=== PATIENT | male | born 1935 | race Caucasian/White ===

== ENCOUNTER → 2023-12-16 08:03 | Outpatient (REF) | payer MEDICARE, BC, SELFPAY | LOC: RAD 08:03 | PROVIDERS: ATTENDING PHYSICIAN Internal Medicine Rheumatology; FAMILY PHYSICIAN Internal Medicine | DX: M81.0 Age-related osteoporosis without current pathological fracture (principal) | CPT/HCPCS: 77080 ==

== ENCOUNTER → 2023-12-30 07:25 | Outpatient (REF) | payer MEDICARE, BC, SELFPAY ==
[2023-12-30 08:24] LABS: % Basophils 0.6 % (0-2); % Eosinophils 1.9 % (0-6); % Immature Granulocytes 0.5 % (0-0.5); % Lymphocytes 31.8 % (20.5-51.1); % Monocytes 10.5 % (1.7-9.3); % Neutrophils 54.7 % (42.2-75.2); Absolute Basophils 0.1 10^3/uL (0-0.2); Absolute Eosinophils 0.2 10^3/uL (0-0.7); Absolute Immature Granulocytes 0.1 10^3/uL (0-0.05); Absolute Lymphocytes 3.9 10^3/uL (1.2-3.4); Absolute Monocytes 1.3 10^3/uL (0.1-0.6); Absolute Neutrophils 6.7 10^3/uL (1.4-6.5); Hematocrit 51.2 % (39.0-52.0); Mean Corp Hgb Conc. 33.2 g/dL (33.0-37.0); Mean Corpuscular Hgb 30.9 pg (27.0-31.0); Mean Corpuscular Volume 92.9 fL (80.0-94.0); Mean Platelet Volume 10.9 fL (7.4-10.4); Nucleated Red Blood Cells % 0 % (-); Platelet Count 170 10^3/uL (130-400); Red Blood Cell Count 5.51 10^6/uL (4.70-6.10); Red Cell Dist. Width 14.2 % (11.5-14.5); White Blood Cell Count 12.3 10^3/uL (4.8-10.8)
[2023-12-30 09:28] LABS: Erythrocyte Sed Rate 3 mm/hour (0-20)
[2023-12-30 09:34] LABS: Glycohemoglobin (HgbA1c) 6.9 % (4.0-5.6)
[2023-12-30 10:25] LABS: ALT (SGPT) 30 U/L (0-50); AST (SGOT) 39 U/L (17-59); Alkaline Phosphatase 79 U/L (38-126); Blood Urea Nitrogen 23 mg/dl (9-20); Calcium 9.4 mg/dl (8.4-10.2); Carbon Dioxide 31 mmol/L (22-30); Chloride 100 mmol/L (98-107); Glucose 93 mg/dl (70-99); HDL Cholesterol 68 mg/dl; LDL Cholesterol, Calculated 83 mg/dl; Potassium 4.6 mmol/L (3.5-5.1); Sodium 138 mmol/L (135-145); Total Bilirubin 1.3 mg/dl (0.2-1.3); Total Cholesterol 172 mg/dl (50-199); Total Protein 6.8 g/dl (6.3-8.2); Triglyceride 105 mg/dl (10-149); Very Low Density Lipoprotein 21 mg/dl (0-30); eGFR 52.84
== END ==
LOC: REG 07:25
PROVIDERS: ATTENDING PHYSICIAN Internal Medicine Rheumatology; FAMILY PHYSICIAN Internal Medicine
DX: E78.5 Hyperlipidemia, unspecified (principal); M06.00 Rheumatoid arthritis without rheumatoid factor, unspecified site; R73.01 Impaired fasting glucose; Z79.52 Long term (current) use of systemic steroids
CPT/HCPCS: 36415; 80053; 80061; 83036; 85025; 85652; 86140

== ENCOUNTER 2024-07-26 08:16 | Inpatient (IN) | payer MEDICARE, BC, SELFPAY ==
[2024-07-23 18:33] VITALS: BP 174/110
--- NOTE | 2024-07-23 19:21 | ED.GENMED ---
History of Present Illness
General
Chief Complaint: Heart Rate Problem
Source: patient
Exam Limitations: none
Time Seen by Provider: 07/23/24 18:54
Nursing documentation reviewed up to this point in time: agreed with
History of Present Illness
History of Present Illness:
89 male presents with fatigue, history of A-fib followed at [facility] on Eliquis and sotalol has had an ablation does not typically go into A-fib his watch showed that his heart rate was a little faster than usual so also noticed some lower extremity
edema he is a , he lives alone does not drink or smoke denies any chest pain
Past History
Past History
ED Past Medical History: Arrthythmia and Other
ED Past Surgical History: Cardiac and Other (Past surgical history)
Social History
Tobacco: Non-smoker
Alcohol: None
Drug: None
Personal:
Living: with family
Employment: Retired
Review of Systems
Review of Systems
All Other Systems: Not applicable
Constitutional: Reports fatigue; Denies fever
EENT: Reports no symptoms
Respiratory: Denies cough or trouble breathing
Cardiac: Denies chest pain or palpitations
ABD/GI: Reports no symptoms
: Reports no symptoms
Musculoskeletal: Reports edema
Skin: Reports no symptoms
Neurological: Reports no symptoms
Endocrine: Reports no symptoms
Phy Exam
Physical Exam
Physical Exam:
Physical Exam
General: no apparent distress, not acutely ill
Neck: No jaundice
Heart: Irregular
Lungs: Crackles at the bases
Abdomen: Nontender
Neuro: alert and oriented. no focal neurological deficits
Skin: no rash
Psychiatric: well kept. interactive and cooperative
Extremities: Edema is present
Scores
Heart Failure Risk
Heart Failure Risk Score: Yes
History of Stroke or TIA: No
History of intubation for respiratory distress: No
Heart rate on ED arrival >/= 110: No
SaO2 <90% on arrival on room air: No
HR >/=110 during 3min walk test (or too ill to perform test): Yes
ECG has acute ischemic changes: No
Urea >/=12mmol/L (BUN 33.6mg/dL): No
Serum CO2>/=35mmol/L: No
Troponin I or T elevated to CA Level (0.4mg/dL): No
NT-proBNP >/=5,000ng/L (5,000pg/ml): Yes
HF Risk Score: 3
Admission Status: HIGH RISK 15.9% Consider SNF treatment or admission to hospital
Course
Orders/Labs/Results
Orders:
Orders
07/23/24 Dinner
Cholesterol Lowering
At Your Request: Full Participation
Does patient need a safe tray?: No
Cholesterol Lowering: Sodium, 2 Gram
07/23/24 18:27
EKG [Electrocardiogram (*1)] Urgent
Reason for Study: Atrial Fibrillation
EKG- Treatment ONCE
07/23/24 19:07
Electrocardiogram (*1) Stat
Reason for Study: Other
Other Reason for Exam: chest pain
Cardiac Monitoring- Treatment ONCE
EKG- Treatment ONCE
CR Chest - 2 Views Urgent
Comment:
Reason For Exam: sob
07/23/24 19:27
Complete Blood Count/With Diff Urgent
Comprehensive Metabolic Panel Urgent
Magnesium Urgent
NT-proBNP Urgent
TSH Urgent
Troponin I Urgent
07/23/24 20:20
Furosemide [Lasix] 40 mg IV NOW STA
07/23/24 21:04
Admit/Transfer Patient As Directed
Co-Sign Provider:
Level of Care: Observation services
Assign to:: Telemetry
Physician / Group: Hospitalist
Diagnosis: CHF
Reason for Telemetry: Medication for Arrhythmia
Date to Stop Telemetry: 07/25/24
Time to Stop Telemetry: 11:00
PRN Pain Medication Management As Directed
May give lesser potent ordered pain med per pt: Yes
preference::
Protocol:: Medication orders for pain may be administered in a
manner that supports deferring to patient preference
when the pt is:
- Requesting an ordered lesser potent pain medication.
Least to most potent pain medications are defined
as: acetaminophen < NSAID < tramadol < opioids
(morphine, oxycodone, hydromorphone).
- Requesting a lesser dose of the same medication IF
ORDERED.
- Requesting a less intrusive route of administration
if both routes are prescribed by the provider (PO <
IV).
07/23/24 21:05
Code Status As Directed
Resuscitation Status: Full Code
07/23/24 21:09
Propranolol [Inderal] 40 mg PO NOW STA
Sotalol [Betapace] 40 mg PO NOW STA
ECG as needed As Directed
ECG as needed for:: Rhythm Change
Notify MD As Directed
Notify physician if: For ECG after doses 1-5 and PRN rhythm change:
--Notify provider if QTc interval is > 500 msec
07/23/24 22:00
Atorvastatin [Lipitor] 40 mg PO HS
Flush (0.9% Sodium Chloride) [Flush (Nss)] See Dose Instructions IV PER PROTOCOL
07/23/24 22:22
Acetaminophen [Tylenol] 650 mg PO Q6HPRN PRN
07/23/24 22:22
VTE Contraindication Routine
VTE Mechanical Device Contraindication: Medical Contraindication
Pharmocologic Contraindication: Medical Contraindication
Activity As Directed
Activity Level: With Assistance
Intake/ Output As Directed
Frequency: Per unit guidelines
Patient Education As Directed
Type: CHF folder
Comment: give on admission. Document in Interdisciplinary Education record
Sleep Apnea Assessment by RN As Directed
Comment:
Physician Instructions:
Vital Signs As Directed
Frequency: Other
Additional Instructions:: Q12 or per unit guidelines if more frequent.
Weight As Directed
Frequency: Daily
Type of Scale: Standing Scale
Comment: Daily morning weight. If unable to stand, use balanced bed scale.
Weight As Directed
Frequency: Once
Type of Scale: Standing Scale
Comment: Upon Admission. If unable to stand, use balanced bed scale.
Pulse Ox/cont/shift [RESP] Routine
Quantity: 1
Special Instructions: Daily pulse oximetry at rest. If greater than 92% at rest also obtain pulse oximetry
while ambulating as tolerated.
07/24/24 06:00
Echo 2D MMode Color/Doppler IN AM
Reason for Study: heart failure
Basic Metabolic Panel IN AM
Cardiovascular Evaluation IN AM
Magnesium IN AM
07/24/24 08:00
Cholecalciferol (Vitamin D3) [VITAMIN D3 (cholecalciferol)] 25 mcg PO DAILY
Famotidine [Pepcid] 20 mg PO BID
Furosemide [Lasix] 20 mg PO BID AT 0800,1600
Lisinopril [Zestril] 30 mg PO DAILY
Prednisone [Deltasone] 5 mg PO DAILY
Propranolol [Inderal] 40 mg PO BID
Sotalol [Betapace] 80 mg PO DAILY
07/24/24 18:00
Rivaroxaban [Xarelto] 15 mg PO QPM
Sotalol [Betapace] 40 mg PO QPM
07/25/24 06:00
Basic Metabolic Panel IN AM
07/25/24 11:00
DC Protocol for Telemetry ONCE
07/26/24 06:00
Basic Metabolic Panel IN AM
Abnormal Lab Results
07/23/24
19:27
Absolute Neuts (auto) 6.6 H 10^3/uL
(1.4-6.5)
Absolute Monos (auto) 0.7 H 10^3/uL
(0.1-0.6)
Lymphocytes % 17.8 L %
(20.5-51.1)
Potassium 5.2 H mmol/L
(3.5-5.1)
BUN 28 H mg/dl
(9-20)
Glucose 237 H mg/dl
(70-99)
Total Protein 6.1 L g/dl
(6.3-8.2)
07/23/24 19:27
07/23/24 19:27
Vital Signs
Initial and Last Documented VS:
Initial Vital Signs
Temp Pulse Resp BP Pulse Ox
98.2 F 84 18 174/110 97
07/23/24 18:33 07/23/24 18:33 07/23/24 18:33 07/23/24 18:33 07/23/24 18:33
Last Documented Vital Signs
Temp Pulse Resp BP Pulse Ox
98.2 F 61 16 168/89 98
07/23/24 18:33 07/23/24 21:45 07/23/24 21:45 07/23/24 21:35 07/23/24 21:45
MDM/Problems Addressed
Differential Diagnosis Includes:
A-fib heart failure pneumonia electrolyte abnormality
MDM/Problems Addressed:
Fatigue continue
Chronic conditions affecting care:
A-fib
Chronic conditions affecting care: Arrhythmia
*Radiology
Radiology exam reviewed: preliminary read by ED provider and radiology read reviewed
*Pulse Oximetry
Patient hypoxic: no
*EKG
Interpreted by ED Provider?: Yes
Interpretation: abnormal
Comparison EKG: no comparison EKG present
Heart Rate: 70
Rate: normal
Rhythm: a-fib
Ischemia: non-specific ST changes
*Shuttle Hand Interpretation
Rate: normal
Interpretation: normal
Heart Rate: 68
Rhythm: a-fib
*Critical Care Note
Total Time (30-74mins, 75-104mins- exclusive of procedures): Not Applicable
Update Note
Update Note:
Update patient under controlled A-fib with a complaints assessment lower extremity edema does not sound has ever been cardioverted previously, he did eat just a few hours ago will check labs chest x-ray proBNP
Update proBNP noted, does have small effusions blood pressure is up we will start IV diuretic low threshold to admit age, potential for decompensation lives alone
ED Attending Note
-
Portions of this chart may have been created with voice recognition software.� Occasional wrong word or��sound alike� substitutions may have occurred due to the inherent limitations of voice recognition software.
Discharge Plan
Departure
Patient Disposition: Admit
Date of Disposition: 07/23/24
Time of Disposition: 20:19
Admit to: Telemetry
Presentation/result/management discussed w/ accepting MD/DO: Hospitalist
Patient with high blood pressure during this ER visit?: Yes
Condition: Fair
Covid-19: Not Applicable
Discharge Problem:
CHF (congestive heart failure), Atrial fibrillation with controlled ventricular rate
Interventions
Interventions:
*Risk Screen - Suicide Last Done: 07/23/24 22:32
*General Assessment Last Done: 07/23/24 18:33
*Neglect/Abuse Screening Last Done: 07/23/24 18:33
ED- Fall Risk Assessment Last Done: 07/23/24 19:16
*ED COVID-19 Vaccine History Last Done: 07/23/24 22:32
*Nursing Disposition Last Done: 07/23/24 22:17
ED- Cardiac Assessment Last Done: 07/23/24 19:16
ED- Pulmonary Assessment Last Done: 07/23/24 19:16
Discharge Date and Time
Discharge Date/Time: 07/23/24 22:18
[2024-07-23 19:39] LABS: % Basophils 0.4 % (0-2); % Eosinophils 0.7 % (0-6); % Immature Granulocytes 0.2 % (0-0.5); % Lymphocytes 17.8 % (20.5-51.1); % Monocytes 8.1 % (1.7-9.3); % Neutrophils 72.8 % (42.2-75.2); Absolute Eosinophils 0.1 10^3/uL (0-0.7); Absolute Lymphocytes 1.6 10^3/uL (1.2-3.4); Absolute Monocytes 0.7 10^3/uL (0.1-0.6); Absolute Neutrophils 6.6 10^3/uL (1.4-6.5); Hematocrit 44.9 % (39.0-52.0); Hemoglobin 15.3 g/dL (13.0-18.0); Mean Corp Hgb Conc. 34.1 g/dL (33.0-37.0); Mean Corpuscular Hgb 30.8 pg (27.0-31.0); Mean Corpuscular Volume 90.3 fL (80.0-94.0); Mean Platelet Volume 10.4 fL (7.4-10.4); Nucleated Red Blood Cells % 0 % (-); Platelet Count 150 10^3/uL (130-400); Red Blood Cell Count 4.97 10^6/uL (4.70-6.10); Red Cell Dist. Width 14.3 % (11.5-14.5); White Blood Cell Count 9.1 10^3/uL (4.8-10.8)
[2024-07-23 19:45] VITALS: BP 176/119
[2024-07-23 20:00] VITALS: BP 157/87
[2024-07-23 20:03] LABS: NT-proBNP 7900 pg/ml; Troponin I 0.014 ng/ml
[2024-07-23 20:09] LABS: ALT (SGPT) 35 U/L (0-50); AST (SGOT) 34 U/L (17-59); Albumin 3.7 g/dl (3.5-5.0); Alkaline Phosphatase 88 U/L (38-126); Blood Urea Nitrogen 28 mg/dl (9-20); Calcium 9.6 mg/dl (8.4-10.2); Carbon Dioxide 27 mmol/L (22-30); Chloride 100 mmol/L (98-107); Glucose 237 mg/dl (70-99); Magnesium 1.8 mg/dl (1.6-2.3); Potassium 5.2 mmol/L (3.5-5.1); Sodium 141 mmol/L (135-145); Total Bilirubin 0.7 mg/dl (0.2-1.3); Total Protein 6.1 g/dl (6.3-8.2); eGFR 52.51
[2024-07-23 20:40] LABS: TSH 1.32 uIU/ml (0.47-4.68)
--- NOTE | 2024-07-23 20:52 | HPS.HSE ---
Family Physician
-
Family Physician: Shruti Francisco
Chief Complaint
-
Palpitations
History of Present Illness
This is a 89-year-old male with past medical history of atrial fibrillation on anticoagulation with Xarelto, essential tremor status post deep brain stimulation, hypertension who presents to the emergency department after finding that his heart rate
was elevated compared to his baseline in the setting of some palpitations.
Patient reports that he is been diagnosed with atrial fibrillation since his 50s and he status post ablation. He has been chronically on sotalol with heart rate that is resting in the 50s at baseline. When he exercises he can go as high as 70s.
He reports he is otherwise been feeling well without lightheadedness or dizziness nausea vomiting or diaphoresis. He denies having any chest pain. He reported an episode of palpitations today. He checked his heart rate on a pulse oximeter and
notes that the heart rate was as high as 90 and quite variable so he decided to come to the emergency department. Patient usually follows at [facility] with Dr. Parker.
He reports several months of dependent bilateral lower extremity edema. No significant changes recently. He denies any acute weight gain, orthopnea or PND.
On arrival in the ED was hypertensive to 176/110, pulse was 64 with oxygen saturation of 98% on room air. His chest x-ray was clear. ECG shows atrial fibrillation at a rate of 73 without any ischemic changes. His troponin was negative. BNP was
elevated at 7900. CBC was within normal limits. Chemistries was mostly unremarkable with a BUN of 20 and a creatinine of 1.3. Blood glucose was 237. Potassium was 5.2.
Medical History
Past Medical History
Past Medical History: Reports Arrhythmia (Permanent AFIB), CAD and HTN
Additional Past Medical History:
Essential Tremor
Arthritis
Past Surgical History: Reports Other
Social History
Tobacco: Non-smoker
Alcohol: None
Drug: None
Personal:
Living: Alone
Employment: Retired
Family History
Family History: Not pertinent
Allergies / Home Medications
Allergies reflects when Allergies were last updated in [facility].
Home Medications with original date entered in [facility]
Allergy/Medication List:
Allergies
Allergy/AdvReac Type Severity Reaction Status Date / Time
RODGER Inhibitors Allergy Unknown Verified 07/27/22 09:17
allopurinol Allergy Unknown Verified 07/27/22 09:17
atenolol [From Tenormin] Allergy Unknown Verified 07/27/22 09:17
lansoprazole [From Prevacid] Allergy Unknown Verified 07/27/22 09:17
nifedipine [From Procardia] Allergy Swelling Verified 07/27/22 09:17
prazosin HCl [From Minipress] Allergy Unknown Verified 07/27/22 09:17
warfarin sodium Allergy Unknown Verified 07/27/22 09:17
[From Coumadin]
Home Medications
Boiron Arnicare Gel 1 applic topical DAILYPRN PRN mild pain 07/23/24
acetaminophen 325 mg tablet (Tylenol) 650 mg PO Q4HPRN PRN mild pain 07/23/24
atorvastatin 40 mg tablet (Lipitor) 40 mg PO HS 07/23/24
cholecalciferol (vitamin D3) 25 mcg (1,000 unit) tablet (Vitamin D3) 25 mcg PO DAILY 07/23/24
famotidine 20 mg tablet (Pepcid) 20 mg PO BID 07/23/24
lisinopril 30 mg tablet 30 mg PO DAILY 07/23/24
omega 3-opl-yve-fish oil 1,000 mg (120 mg-180 mg) capsule (Fish Oil) 1 cap PO BID 07/23/24
prednisone 5 mg tablet 5 mg PO DAILY 07/23/24
propranolol 40 mg tablet 40 mg PO BID 07/23/24
rivaroxaban 15 mg tablet (Xarelto) 15 mg PO QPM 07/23/24
sotalol 80 mg tablet 40 mg PO QPM 07/23/24
sotalol 80 mg tablet 80 mg PO DAILY 07/23/24
triamcinolone acetonide 0.1 % topical cream 1 applic topical DAILY 07/23/24
Review of Systems
-
History Source: Patient
Constitutional: Reports No Symptoms
EENT: Reports No Symptoms
Respiratory: Reports No Symptoms
Cardiac: Reports Palpitations
Abdomen/GI: Reports No Symptoms
: Reports No Symptoms
Musculoskeletal: Reports No Symptoms
Skin: Reports No Symptoms
Neurological: Reports No Symptoms
Hematologic/Lymphatic: Reports No Symptoms
Psych: Reports No Symptoms
Physical Exam
Vital Signs
Vital Signs
Temp Pulse Resp BP Pulse Ox
98.2 F 64 18 176/119 98
07/23/24 18:33 07/23/24 19:45 07/23/24 19:45 07/23/24 19:45 07/23/24 19:45
Physical Exam
General: Well Developed, Well Nourished, No Apparent Distress, Comfortable and Conversant
HEENT: NormoCephalic, Anicteric, Moist mucous membranes, Atraumatic and PERRLA
Respiratory: Clear
Cardiac: S1/S2 and Irregular Rhythm
Breast: Deferred by me
GI: Soft, Non Tender, Non Distended and Normal Bowel Sounds
Rectal: Deferred by Provider
Genito-urinary: Deferred by me
Musculoskeletal: No Clubbing, No Cyanosis, Edema, Right Upper Extremity (1+) and Edema, Left Lower Extremity (1+)
Skin: Warm and Dry
Neuro: AO x 3
Hematologic/Lymphatic: No Lymphadenopathy
Psych: Calm
Laboratory Results
-
07/23/24 19:27
07/23/24 19:27
Laboratory Results
Total Bilirubin 0.7 mg/dl (0.2-1.3) 07/23/24 19:27
AST 34 U/L (17-59) 07/23/24 19:27
ALT 35 U/L (0-50) 07/23/24 19:27
Alkaline Phosphatase 88 U/L (38-126) 07/23/24 19:27
Troponin I 0.014 ng/ml 07/23/24 19:27
Data Reviewed
-
Diagnostic Radiology: Image Personally Visualized and interpreted and Report Reviewed by me
Medical Tests (Nuc Med, Echo, EKG etc): Image Personally Visualized and interpreted
Lab Data: Labs Reviewed by me
Old Records: Reviewed
Impression/Plan
-
IMPRESSION:
89-year-old with history of atrial fibrillation status post ablation who presents emergency department with palpitations and a finding of his heart rate higher than his baseline. Patient reports that his baseline is usually 55 but is currently
running at around 70-90 at home so decided to come to the emergency department. He is otherwise asymptomatic. ECG in the ED showed rate controlled atrial fibrillation at 73, troponin was negative, BNP was elevated. He does have bilateral pedal
edema. Otherwise is examination on physical findings, lab and imaging were unremarkable.
PLAN:
1. AFIB - Patient with rate controlled afib. Adamant that his rate is higher than normal. Palpitations at home but not here. Usual follows with Dr. Reggie Parker at [place]. Does not appear to have symptomatic afib on my evaluation.
- admit to telemetry
- will monitor overnight and document resting rates, if generally less than 70, no changes required and patient can follow up with pmd on wednesday and Dr. Reggie Parker in August.
- continue Sotalol 80 am and 40 pm
- continue propranolol 40 bid
- continue Xarelto
2. Heart Failure - Likely from chronic hypertensive heart disease. BNP elevated. No JVD, no pulmonary edema. No significant dyspnea on exertion. Pedal edema only findings suggestive of mild decompensation.
- echo
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
- continue lisinopril and his statin
DVT PPX - on Xarelto
Code Status - Full Code. No prolonged life support.
[2024-07-23 21:00] VITALS: BP 168/89
[2024-07-23] MEDS: LASIX 40 MG IV (21:35)
--- NOTE | 2024-07-23 21:40 | PTCARENOTE ---
Pt arrived from ED via stretcher and ambulated to bed. Pt is AAOx3, VSS, and w/o complaints of pain. Pt is resting comfortably w/ call harrison within reach.
[2024-07-23 21:46] VITALS: BMI 25.2
[2024-07-23] MEDS: LIPITOR PO (22:29)
[2024-07-23 22:51] VITALS: BMI 24.4
[2024-07-23 23:03] VITALS: BMI 24.4
[2024-07-23 23:38] VITALS: BP 186/107
[2024-07-24] MEDS: APRESOLINE 10 MG IV (00:30)
[2024-07-24 03:33] VITALS: BP 148/76
[2024-07-24 06:00] VITALS: BMI 24.3
[2024-07-24 07:49] VITALS: BP 165/98
[2024-07-24] MEDS: VITAMIN D3 (cholecalciferol) 25 MCG PO (08:21)
[2024-07-24] MEDS: LASIX 20 MG PO ×2 (08:21→15:20)
[2024-07-24] MEDS: ZESTRIL 30 MG PO (08:21)
[2024-07-24] MEDS: PEPCID 20 MG PO (08:21)
[2024-07-24] MEDS: DELTASONE 5 MG PO (08:22)
[2024-07-24] MEDS: BETAPACE 80 MG PO (08:22)
[2024-07-24] MEDS: INDERAL 40 MG PO ×2 (08:22→20:29)
[2024-07-24 08:53] LABS: Blood Urea Nitrogen 25 mg/dl (9-20); Calcium 9.7 mg/dl (8.4-10.2); Carbon Dioxide 27 mmol/L (22-30); Chloride 99 mmol/L (98-107); Estimated Creatinine Clearance 36 ml/min; Glucose 126 mg/dl (70-99); HDL Cholesterol 66 mg/dl; LDL Cholesterol, Calculated 70 mg/dl; Magnesium 1.8 mg/dl (1.6-2.3); Potassium 3.9 mmol/L (3.5-5.1); Sodium 140 mmol/L (135-145); Total Cholesterol 158 mg/dl (50-199); Triglyceride 112 mg/dl (10-149); Very Low Density Lipoprotein 22 mg/dl (0-30); eGFR 57.81
[2024-07-24 11:28] LABS: Glycohemoglobin (HgbA1c) 6.7 % (4.0-5.6)
[2024-07-24 11:47] VITALS: BP 167/97
--- NOTE | 2024-07-24 12:43 | CON.CAR ---
Addendum entered and electronically signed by Cristian Harrison MD 07/24/24 16:56:
89 yo male with PMH of paroxysmal A fib on xarelto (renal dosing), CAD prior stent is admitted with edema and irregular HR. He has noticed progressive edema for about 4 weeks. Then noticed his HR was irregular and higher than usual (typically in
50s, then increased to 70s). No chest pain. Exam with irregular rhythm, II/ systolic murmur at RUSB, 1+ LE edema. Tele: Afib 70s-80s.
Acute HFPEF
-echo shows EF 70-75%, mild MS, mild/mod
-not on lasix at home
-change lasix back to IV: 20mg bid, with monitoring of tele, labs, weight
A fib, paroxysmal
-back in A fib for 3 days per patient
-maintained on sotalol and xarelto without missed doses
-HF sxs seem to have preceded the recurrence of A fib
-to consider DCCV prior to d/c after diuresis (patient considering)
HTN
-BP elevated: increase lisinopril to 40mg daily
Original Note:
Consultation
Consultation Request
Date/Time Consultation Requested: 07/24/24 1005
Date/Time Consultation Performed: 07/24/24 1244
Requesting Provider: Aretha Bradley
Performing Provider: Alyx ARANA for Dr. Harrison
Reason for Consultation: AFIB
Medical History
-
Chief Complaint: LE edema, faster HR than usual
History of Present Illness:
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
month and an 'empty feeling in his chest' and some SOB when he bends down to tie shoes. He checked his pulse Ox and saw that his HR was slightly higher than usual on it, and came to the ER, where he is seen to be in rate-controlled AFIB. He was
given a dose of IV lasix and transitioned to PO.
Past Medical History
Past Medical History: Arrhythmias, HTN, Hypercholesterolemia and Other (arthritis)
Social History
Tobacco: Non-Smoker
Alcohol: None
Personal:
Living: Alone
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
Family History
Family History: Reviewed & Not Pertinent
Allergies / Home Medications
Allergy/AdvReac Type Severity Reaction Status Date / Time
RODGER Inhibitors Allergy Unknown Verified 07/27/22 09:17
allopurinol Allergy Unknown Verified 07/27/22 09:17
atenolol [From Tenormin] Allergy Unknown Verified 07/27/22 09:17
lansoprazole [From Prevacid] Allergy Unknown Verified 07/27/22 09:17
nifedipine [From Procardia] Allergy Swelling Verified 07/27/22 09:17
prazosin HCl [From Minipress] Allergy Unknown Verified 07/27/22 09:17
warfarin sodium Allergy Unknown Verified 07/27/22 09:17
[From Coumadin]
�Medication �Instructions �Recorded �Confirmed �Type
Boiron Arnicare Gel 1 applic topical DAILYPRN PRN mild 07/23/24 07/23/24 History
pain
acetaminophen 325 mg tablet 650 mg PO Q4HPRN PRN mild pain 07/23/24 07/23/24 History
(Tylenol)
atorvastatin 40 mg tablet (Lipitor) 40 mg PO HS High Cholesterol 07/23/24 07/23/24 History
cholecalciferol (vitamin D3) 25 25 mcg PO DAILY Supplement 07/23/24 07/23/24 History
mcg (1,000 unit) tablet (Vitamin
D3)
famotidine 20 mg tablet (Pepcid) 20 mg PO BID Supplement 07/23/24 07/23/24 History
lisinopril 30 mg tablet 30 mg PO DAILY Blood Pressure 07/23/24 07/23/24 History
omega 0-ehf-tuq-fish oil 1,000 mg 1 cap PO BID High Cholesterol 07/23/24 07/23/24 History
(120 mg-180 mg) capsule (Fish Oil)
prednisone 5 mg tablet 5 mg PO DAILY Anti-Inflammatory 07/23/24 07/23/24 History
propranolol 40 mg tablet 40 mg PO BID Blood Pressure 07/23/24 07/23/24 History
rivaroxaban 15 mg tablet (Xarelto) 15 mg PO QPM Blood Clot 07/23/24 07/23/24 History
Prevention/Tx
sotalol 80 mg tablet 40 mg PO QPM Arrhythmia 07/23/24 07/23/24 History
sotalol 80 mg tablet 80 mg PO DAILY Arrhythmia 07/23/24 07/23/24 History
triamcinolone acetonide 0.1 % 1 applic topical DAILY Skin Issues 07/23/24 07/23/24 History
topical cream
Review of Systems
-
History Source: Patient
All other systems: Negative unless noted
Respiratory: Trouble Breathing (mild, when bending)
Cardiac: Other (intermittent empty feeling as described)
Musculoskeletal: Edema
Physical Exam
Vital Signs
Temp Pulse Resp BP Pulse Ox
97.6 F 83 18 167/97 96
07/24/24 11:47 07/24/24 11:47 07/24/24 11:47 07/24/24 11:47 07/24/24 11:47
Lab Results
07/23/24 19:27
07/24/24 07:27
Troponin I 0.014 ng/ml 07/23/24 19:27
Ary-W-Jysnsutpdzp Pept 7900 pg/ml 07/23/24 19:27
Physical Exam
General: Well Developed, Well Nourished and No Apparent Distress
HEENT: Normocephalic and Anicteric
Respiratory: Clear and Non Labored Respirations
Cardiac: Irregular Rhythm and Murmur (II/ systolic)
Musculoskeletal: Edema (mild BLE edema)
Skin: Warm and Dry
Neuro: AO x 3
Psych: Calm
Impression / Plan
-
AFIB: type unclear since we don't know when he went back into AFIB
-hx AT ablation, remote
-continue Xarelto- he has been compliant and missed no doses. [id number] score is 6 for age, HTN, CHF, DM, vascular disease.
-continue sotalol for now
-rate-controlled, not clear that he is symptomatic to me
-typically, would plan to cardiovert and we discussed this , but patient has neurostimulator for his tremors, so I am not sure this is advisable- will review with rock crusher operator.
Acute HFpEF: mild
-echo as noted
-BNP elevated 7900 and LE edema noted
-s/p dose IV Lasix, now on PO Lasix
HTN:
-elevated above goal
-continue ACEI- increase dose and monitor. Continue propranolol and sotalol. Now on lasix.
-monitor response
Mild to moderate :
-follow as OP with typical rock crusher operator
Hx CAD:
-stable
-on Xarelto, atorvastatin
DM:
-not on meds
-per primary
Data Reviewed
-
EKG: Tracing Personally Visualized and interpreted (AFIB)
Radiology: Report Reviewed by me (CXR 07/23/24: No acute disease of the chest. Electronic device. Tiny bilateral pleural effusions)
Medical Tests (Nuc Med, Echo etc): Report Reviewed by me (Echo 07/24/24: Hyperdynamic left ventricular systolic function with ejection fraction is 70-75%. Mild mitral stenosis. Peak/mean gradients 8/5 mmHg. Mild/moderate aortic stenosis. Peak/mean
gradients 43/24 mmHg AMANDA 1.6 cm2. )
Labs: Labs Reviewed by me
[2024-07-24] MEDS: ZESTRIL 10 MG PO (15:21)
[2024-07-24] MEDS: LASIX 20 MG IV (16:04)
--- NOTE | 2024-07-24 16:05 | W.PN.HOSP.TC ---
Today's Communication/Plan
-
Continue to follow-up with cardiology
Assessment / Plan
Assessment / Plan
Ordered COVID test-- 07/24
Rate controlled atrial fibrillation
- Cad Designer is Dr. Reggie Parker at [place].
- Patients telemetry shows no overnight events and pulse is 78 today (07/24)
- [id number] score is 6 for age, HTN, CHF, DM, vascular disease
- Cardiology consulted- are currently discussing the probability of cardioverting patient
- continue Sotalol 80 am and 40 pm, propranolol 40 bid, and Xarelto
Heart Failure:
- No shortness of breathe, jugular venous distention, dyspnea, fatigue, chest pain
- BNP elevated at 7900 on admission
- Echocardiogram on 07/24 shows LVEF of 70-75%
- Cardiology ordered Furosemide 20 mg IV BID, monitor weight
- Continue to f/u cardiology
Essential Hypertension:
-152/96 (07/24)
-continue lisinopril 40 mg
Anticipated Discharge: 24 - 48 hours
Subjective/Interval History
-
Date of Service: July 24, 2024
No acute overnight events. No acute medical complaints.
Objective Data
-
Labs:
Laboratory Results
07/24/24
07:27
Sodium 140
Potassium 3.9
Chloride 99
Carbon Dioxide 27
BUN 25 H
Creatinine 1.2
Glucose 126 H
Calcium 9.7
Vital Signs:
Vital Signs
Temp Pulse Resp BP Pulse Ox
97.6 F 78 18 152/96 96
07/24/24 11:47 07/24/24 15:20 07/24/24 11:47 07/24/24 15:20 07/24/24 11:47
I&O
07/23/24 07/24/24 07/25/24
06:59 06:59 06:59
Intake Total 240 / 240
Output Total 2049 200 / 200
Balance -1810 / -1810 -200 / -200
Review of Systems
-
History Source: Patient
All other systems: Reviewed and negative
Respiratory: Reports Trouble Breathing (when bending over)
Musculoskeletal: Reports Edema (B/L pedal edema)
Physical Exam
-
General: Well Developed, Well Nourished and No Apparent Distress
HEENT: Normocephalic and Atraumatic
Respiratory: Clear to Auscultation
Cardiac: Regular Rhythm and Irregular Rhythm
Musculoskeletal: No Clubbing, No Cyanosis, Edema, Right Lower Extrem (pitting) and Edema, Left Lower Extrem (pitting)
Neuro: Awake, Alert, Oriented and AO x 3
Psych: Calm
Data Reviewed
-
Labs: Labs Reviewed by me and Discussed with Physician
--- NOTE | 2024-07-24 16:06 | W.PN.UPDATE ---
Update Note
Progress Note Update
seen and examined by me independently in collaboration with the medical coding instructor.
Lab data and imaging data reviewed.
Addendum as below :
Patient with a longstanding history of atrial fibrillation with prior ablation and now in A-fib presented with recurrent palpitation. No associated lightheadedness or hemodynamic instability. No associated angina no chest pain. He does have
bendopnea and also exertional shortness of breath. Currently has lower extremity edema with elevated BNP. Chest x-ray negative for CHF. I suspect some of his symptoms secondary to acute heart failure with preserved EF. Echocardiogram from
today noted with normal EF. Mild MS and mild to moderate noted.
construction scheduler so far shows no RVR. He is on sotalol.
Consult cardiology for further evaluation and disposition after cardiology eval.
--- NOTE | 2024-07-24 16:12 | CM ---
Alert awake oriented patient who lives alone in a 2 story home with 2 step to enter and bed and bathroom on first floor. He is independent in driving and in all activities of daily living.He was offered VN he declined need.He uses a cane and walking
stick.IRIZARRY letter given explained signed and on chart.
No VN hx / No SNF history
[facility]
PCP DR Shruti Francisco
PLAN Home Declined VN
[2024-07-24 16:14] VITALS: BP 152/96
[2024-07-24 16:43] LABS: COVID-19 Antigen Negative (Negative)
[2024-07-24] MEDS: XARELTO 15 MG PO (17:18)
[2024-07-24] MEDS: BETAPACE 40 MG PO (17:19)
[2024-07-24 18:24] VITALS: BP 158/91
[2024-07-24] MEDS: LIPITOR 40 MG PO (20:29)
[2024-07-24 23:13] VITALS: BP 136/82
[2024-07-25] VITALS (7 sets, daily range): BP systolic 141–182; BP diastolic 78–90; BMI 23.7
[2024-07-25] MEDS: APRESOLINE 10 MG IV (04:29)
[2024-07-25] MEDS: DELTASONE 5 MG PO (08:59)
[2024-07-25] MEDS: PEPCID 20 MG PO (08:59)
[2024-07-25] MEDS: LASIX 20 MG IV ×2 (09:00→17:25)
[2024-07-25] MEDS: VITAMIN D3 (cholecalciferol) 25 MCG PO (09:00)
[2024-07-25] MEDS: INDERAL 40 MG PO ×2 (09:00→20:23)
[2024-07-25] MEDS: ZESTRIL 40 MG PO (09:00)
[2024-07-25] MEDS: BETAPACE 80 MG PO (09:00)
[2024-07-25 09:34] LABS: Hematocrit 50.2 % (39.0-52.0); Hemoglobin 17.6 g/dL (13.0-18.0); Mean Corp Hgb Conc. 35.1 g/dL (33.0-37.0); Mean Corpuscular Volume 88.5 fL (80.0-94.0); Mean Platelet Volume 11.1 fL (7.4-10.4); Platelet Count 176 10^3/uL (130-400); Red Blood Cell Count 5.67 10^6/uL (4.70-6.10); Red Cell Dist. Width 14.6 % (11.5-14.5); White Blood Cell Count 13.8 10^3/uL (4.8-10.8)
[2024-07-25 10:22] LABS: Blood Urea Nitrogen 36 mg/dl (9-20); Calcium 9.9 mg/dl (8.4-10.2); Carbon Dioxide 32 mmol/L (22-30); Chloride 94 mmol/L (98-107); Estimated Creatinine Clearance 31 ml/min; Glucose 179 mg/dl (70-99); Potassium 3.5 mmol/L (3.5-5.1); Sodium 140 mmol/L (135-145); eGFR 48.04
--- NOTE | 2024-07-25 11:50 | W.PN.CD ---
Addendum entered and electronically signed by Srini Copeland MD 07/25/24 12:01:
Eventual add MRA and SGLT2-I will be our goal.
Check co-pay of SGLT2-I.
Original Note:
Today's Communication / Plan
-
Continue diuresis
Impression / Plan
-
Acute HFpEF
-echo as noted
-BNP elevated 7900 and LE edema noted
-Continue diuresis
AFib
- 2 prior ablations (AF,AT)
- AFib is persisting. 2 prior ablations, severe LAE, mild MS, age 89. We may have difficulty maintaining sinus
- Rate better
- Can cardiovert with a neurostimulator in place with usual precautions
- Will consider cardioversion this admit
- If AF recurs quickly we may need to adjust sotalol dose but he is near max dose, dofetilide or Amio are options, a third ablation is an option as well but I am not a fan of third ablations FRANCA at age 89
HTN:
Mild to moderate
Hx CAD, prox LAD stent in 2001
DM
Subjective:
Feels better
Echo 07/24/2024: Contrast was used. LVEF 70-75%. Severe LAE, Mild MS, mean 5 mmHg. Mild/mod , mean 24 mmHg, AMANDA 1.6 cm2.
Physical Exam
Vital Signs/Labs
Vital Signs
Temp Pulse Resp BP Pulse Ox
98 F 87 22 151/87 98
07/25/24 11:26 07/25/24 11:26 07/25/24 11:26 07/25/24 11:26 07/25/24 11:26
07/24/24 07/25/24 07/26/24
06:59 06:59 06:59
Actual Weight 66.253 kg 64.467 kg
07/25/24 08:47
07/25/24 08:47
Magnesium 1.8 mg/dl (1.6-2.3) 07/24/24 07:27
Triglycerides 112 mg/dl (10-149) 07/24/24 07:27
LDL Cholesterol, Calc 70 mg/dl 07/24/24 07:27
VLDL Cholesterol, Calc 22 mg/dl (0-30) 07/24/24 07:27
HDL Cholesterol 66 mg/dl 07/24/24 07:27
TSH 1.32 uIU/ml (0.47-4.68) 07/23/24 19:27
07/23/24
19:27
Uxo-P-Dvrrtqaokvp Pept 7900
LAB Results
07/23/24
19:27
Troponin I 0.014
Physical Exam
Constitutional: No acute distress
Cardiovascular: Rhythm/rate is irregular, Pedal edema present, Systolic murmur present and S1S2 is normal
Respiratory: Respiratory effort normal and Lungs clear to auscul.
GI: Soft and Distention absent
Neuro/Psych: AO x 3
Data Reviewed
-
Date of Service: July 25, 2024
--- NOTE | 2024-07-25 15:57 | W.PN.UPDATE ---
Update Note
Progress Note Update
seen and examined by me independently in collaboration with the general medical practitioner.
Lab data and imaging data reviewed.
Addendum as below :
Seeing improvement in his lower extremity edema. Not much of exertional shortness of breath now. No chest pain. Denies any palpitations.
Chest clear.
No hypoxia. Rate controlled A-fib noted on the monitor.
Continue with diuretics for now.
Await cardiology input regarding rhythm versus rate controlled options for him going forward. Neurology standpoint will consider discharging him home
--- NOTE | 2024-07-25 17:01 | CM ---
requested fung check for Jardiance and Farxiga . notified fung is $ 40.00.
Spoke with pt in room he said his family is sick and he will m need taxi to go home . Taxi number [phone] given to pt.
Offered VN he declined need.
He will be staying with his dgt after dc.
PLAN Home declined Needs
[2024-07-25] MEDS: BETAPACE 40 MG PO (17:24)
[2024-07-25] MEDS: XARELTO 15 MG PO (17:24)
--- NOTE | 2024-07-25 17:46 | W.PN.HOSP.TC ---
Today's Communication/Plan
-
f/u cardiology
Assessment / Plan
Assessment / Plan
Ordered COVID test-- 07/24
Rate controlled atrial fibrillation:
- Cardiology consulted (07/25)- keep patient npo past midnight to assess for possibility of cardioversion tomm
- Hse Specialist is Dr. Reggie Parker at [place].
- Patients telemetry shows no overnight events and pulse is 78 today (07/24)
- [id number] score is 6 for age, HTN, CHF, DM, vascular disease
- continue Sotalol 80 am and 40 pm, propranolol 40 bid, and Xarelto
Acute Heart Failure with preserved ejection fraction:
- There is improvment in his bilateral lower extremity edema following diuretic use
- No shortness of breathe, jugular venous distention, dyspnea, fatigue, chest pain
- BNP elevated at 7900 on admission
- Echocardiogram on 07/24 shows LVEF of 70-75%
- Cardiology ordered Furosemide 20 mg IV BID, monitor weight
- Continue to f/u cardiology
Essential Hypertension:
-165/ (07/24)
-continue lisinopril 40 mg
Anticipated Discharge: 24 - 48 hours
Subjective/Interval History
-
Date of Service: July 25, 2024
No overnight events. No acute medical complaints.
Objective Data
-
Labs:
Laboratory Results
07/25/24
08:47
WBC 13.8 H
Hgb 17.6
Hct 50.2
Plt Count 176
Sodium 140
Potassium 3.5
Chloride 94 L
Carbon Dioxide 32 H
BUN 36 H
Creatinine 1.4 H
Glucose 179 H
Calcium 9.9
Vital Signs:
Vital Signs
Temp Pulse Resp BP Pulse Ox
97.9 F 92 22 165/90 98
07/25/24 15:52 07/25/24 17:25 07/25/24 15:52 07/25/24 17:25 07/25/24 15:52
I&O
07/24/24 07/25/24 07/26/24
06:59 06:59 06:59
Intake Total 240 / 240 0 / 0 600 / 600
Output Total 2049 1350 / 1350 640 / 640
Balance -1810 / -1810 -1350 / -1350 -40 / -40
Review of Systems
-
History Source: Patient
All other systems: Reviewed and negative
Physical Exam
-
General: Well Developed, Well Nourished and No Apparent Distress
HEENT: Normocephalic and Atraumatic
Respiratory: Clear to Auscultation
Cardiac: Irregular Rhythm
GI: Soft, Nontender and Nondistended
Musculoskeletal: Edema, Left Upper Extrem and Edema, Left Lower Extrem
Neuro: Awake, Alert, Oriented and AO x 3
Psych: Calm
Data Reviewed
-
Labs: Labs Reviewed by me and Discussed with Physician
[2024-07-25] MEDS: LIPITOR 40 MG PO (22:55)
[2024-07-26 03:28] VITALS: BP 164/93
--- NOTE | 2024-07-26 05:32 | DOWNTIME ---
There was a [employer] Client Telecommunications Administrator Downtime on 07/26/2024 from 0100 to 07/26/2024 at 0300. Downtime documentation of patient's care, including medication administrations, has been reconciled in the electronic record per guidelines. Refer to the
patient's paper chart under the miscellaneous tab to see printed paper medication records and downtime forms.
[2024-07-26 06:00] VITALS: BMI 23.3
[2024-07-26 06:59] VITALS: BP 169/102
[2024-07-26 07:41] LABS: Hematocrit 48.2 % (39.0-52.0); Hemoglobin 16.9 g/dL (13.0-18.0); Mean Corp Hgb Conc. 35.1 g/dL (33.0-37.0); Mean Corpuscular Hgb 31.7 pg (27.0-31.0); Mean Corpuscular Volume 90.4 fL (80.0-94.0); Mean Platelet Volume 10.7 fL (7.4-10.4); Platelet Count 140 10^3/uL (130-400); Red Blood Cell Count 5.33 10^6/uL (4.70-6.10); Red Cell Dist. Width 14.3 % (11.5-14.5); White Blood Cell Count 12.5 10^3/uL (4.8-10.8)
[2024-07-26 08:16] LABS: ALT (SGPT) 37 U/L (0-50); AST (SGOT) 41 U/L (17-59); Albumin 3.7 g/dl (3.5-5.0); Alkaline Phosphatase 76 U/L (38-126); Blood Urea Nitrogen 41 mg/dl (9-20); Calcium 9.5 mg/dl (8.4-10.2); Carbon Dioxide 32 mmol/L (22-30); Chloride 97 mmol/L (98-107); Estimated Creatinine Clearance 31 ml/min; Glucose 109 mg/dl (70-99); Potassium 3.7 mmol/L (3.5-5.1); Sodium 142 mmol/L (135-145); Total Bilirubin 1.2 mg/dl (0.2-1.3); Total Protein 6.2 g/dl (6.3-8.2); eGFR 48.04
[2024-07-26] MEDS: BETAPACE 80 MG PO (08:52)
[2024-07-26] MEDS: DELTASONE 5 MG PO (08:53)
[2024-07-26] MEDS: VITAMIN D3 (cholecalciferol) 25 MCG PO (08:53)
[2024-07-26] MEDS: INDERAL 40 MG PO (08:53)
[2024-07-26] MEDS: PEPCID 20 MG PO (08:53)
[2024-07-26] MEDS: ZESTRIL 40 MG PO (08:53)
[2024-07-26] MEDS: LASIX 20 MG IV (08:53)
--- NOTE | 2024-07-26 09:45 | W.PN.CD ---
Today's Communication / Plan
-
Cardioversion
Add amlodipine
Move to PO Lasix
F/u with his [employer] Manager Financial Planning in 1 week
OK for home after cardioversion
Impression / Plan
-
Acute HFpEF
-echo as noted
-BNP elevated 7900 and LE edema noted
-Move to PO diuretic
- As outpatient would add MRA and SGLT2-I, not now with acute diuresis at age 89
AFib
- 2 prior ablations (AF,AT)
- AFib is persisting. 2 prior ablations, severe LAE, mild MS, age 89. We may have difficulty maintaining sinus
- Rate better
- Can cardiovert with a neurostimulator in place with usual precautions
- Will proceed to cardioversion this admit, but not sure how long it will last
- If AF recurs quickly we may need to adjust sotalol dose but he is near max dose, dofetilide or Amio are options, a third ablation is an option as well but I am not a fan of third ablations FRANCA at age 89
HTN
- Will add amlodipine
Mild to moderate
Hx CAD, prox LAD stent in 2001
DM
Spinal cord stimulator
Subjective:
Feels better
Echo 07/24/2024: Contrast was used. LVEF 70-75%. Severe LAE, Mild MS, mean 5 mmHg. Mild/mod , mean 24 mmHg, AMANDA 1.6 cm2.
Physical Exam
Vital Signs/Labs
Vital Signs
Temp Pulse Resp BP Pulse Ox
97.8 F 69 18 169/102 99
07/26/24 06:59 07/26/24 08:52 07/26/24 06:59 07/26/24 08:52 07/26/24 06:59
07/25/24 07/26/24 07/27/24
06:59 06:59 06:59
Actual Weight 64.467 kg 63.503 kg
07/26/24 06:29
07/26/24 06:29
Magnesium 1.8 mg/dl (1.6-2.3) 07/24/24 07:27
Triglycerides 112 mg/dl (10-149) 07/24/24 07:27
LDL Cholesterol, Calc 70 mg/dl 07/24/24 07:27
VLDL Cholesterol, Calc 22 mg/dl (0-30) 07/24/24 07:27
HDL Cholesterol 66 mg/dl 07/24/24 07:27
TSH 1.32 uIU/ml (0.47-4.68) 07/23/24 19:27
07/23/24
19:27
Icb-I-Vzkmssjhliz Pept 7900
LAB Results
07/23/24
19:27
Troponin I 0.014
Physical Exam
Constitutional: No acute distress
EENT: Anicteric
Cardiovascular: Rhythm/rate is irregular
Respiratory: Respiratory effort normal and Lungs clear to auscul.
GI: Soft and Distention absent
Neuro/Psych: AO x 3
Data Reviewed
-
Date of Service: July 26, 2024
[2024-07-26] MEDS: NORVASC 2.5 MG PO (12:33)
[2024-07-26 12:34] VITALS: BP 159/95
[2024-07-26 13:12] VITALS: BP 135/92
--- NOTE | 2024-07-26 14:02 | PTCARENOTE ---
Pt had cardioversion today, He was in Afib, converted with cardioversion to sinus rhythm, then back to arrhythmia. EKG obtained and MD notified
[2024-07-26 15:04] VITALS: BP 169/111
--- NOTE | 2024-07-26 15:38 | W.PN.UPDATE ---
Update Note
Progress Note Update
Seen and examined by me independently in collaboration with the medical advisor.
Lab data and imaging data reviewed.
Addendum as below :
Patient asymptomatic today without shortness of breath or chest pain.
Improved lower extremity well.
Had an elective cardioversion but did not last longer. He is back in persistent atrial fibrillation again without symptoms and rate control.
Discussed with cardiology advises him to return to primary office machine installer and consider other alternative antiarrhythmics or another ablation.
New medications will be low-dose diuretics and new medication for amlodipine for hypertension management.
Discussed with the patient about the the DC plan and medication changes.
Medically stable for discharge home today.
Discussed with son-in-law at bedside.
Total time of discharge 35 minutes.
--- NOTE | 2024-07-26 15:43 | W.DCSUMMARY ---
Discharge Summary
Discharge Data
Date of Admission: 07/26/24
Date of Discharge: 07/26/24
-
Pending Results: No
Hospital Course
patient is an 89 year old male with a past medical history of arrhythmia (diagnosed atrial fibrillation), Coronary artery disease, and hypertension who came with the chief complaint of elevated heart rate based on readings off his pulse oximeter.
His normal pulse rate is 50-55 but had a reading of 90 hence why he was admitted. The increase in pulse rate was associated with palpitations. He also had b/l lower extremity edema that he noticed for the last 4 weeks, shortness of breathe with
exertion, and bendopnea. Diagnosed with Atrial fibrillation since he was 50 years old and had an ablation done 15 years ago. No chest pain, nausea, jugular venous distention, vomiting, dyspnea, cough. Echocardiogram showed a LVEF of 70-75% with an
atrial fibrillation rhythm. Cardiology was consulted and placed him on IV Lasix, monitoring of telemetry, and weight monitoring. Continued on his current dose of sotalol, propanol, and Xarelto for dsicharge. Over course of hospital stay, his
shortness of breath improved, and lower pedal edema is improving. He had elective cardioversion but did not work as atrial fibrillation rhythm returned. Has no symptoms with the return of atrial fibrillation so cardiology advised him to book an
appointment with Dr. Parker (his whip operator) outpatient and for further work up.
He had hypertension throughout hospital course with the highest reading at 180/85. Was administered IV hydralazine and the blood pressure dropped down. Added amlodipine to his current medication regime for discharge.
Discharge Plan
-
Patient Disposition: Home (Routine Discharge)
Discharge Diagnosis/Procedures: Persistent Atrial fibrillation, Acute Heart failure with preserved ejection fraction, Essential Hypertension
Condition: Fair
Diet: Low Cholesterol
Activity: As tolerated
Driving Restrictions: As prior to admission
Bathing Restrictions: None
Instructions: *PCP/Other [facility] Heart Failure Instructions
Referrals:
Navid Parker Jr., MD [Non-Admitting Privileges] - in one to two weeks
Shruti Francisco, DO [Family Provider] - in less than 1 week
Additional Discharge Medication Instructions: Per cardiology- continue the current medication for rate control
Prescriptions:
New
amlodipine 2.5 mg Tablet
2.5 mg PO DAILY Qty: 30 0RF
furosemide 20 mg Tablet
20 mg PO DAILY Qty: 30 0RF
Continued
atorvastatin [Lipitor] 40 mg Tablet
40 mg PO HS
famotidine [Pepcid] 20 mg Tablet
20 mg PO BID
lisinopril 30 mg Tablet
30 mg PO DAILY
acetaminophen [Tylenol] 325 mg Tablet
650 mg PO Q4HPRN PRN (Reason: mild pain) Qty: 60 0RF
sotalol 80 mg Tablet
40 mg PO QPM Qty: 30 0RF
sotalol 80 mg Tablet
80 mg PO DAILY Qty: 30 0RF
prednisone 5 mg Tablet
5 mg PO DAILY Qty: 30 0RF
triamcinolone acetonide 0.1 % Cream
1 applic TOPICAL DAILY Qty: 1 0RF
Rx Instructions:
left ankle/foot
propranolol 40 mg Tablet
40 mg PO BID Qty: 30 0RF
cholecalciferol (vitamin D3) [Vitamin D3] 25 mcg (1,000 unit) Tablet
25 mcg PO DAILY Qty: 30 0RF
omega 5-bld-wof-fish oil [Fish Oil] 1,000 (120-180) mg Capsule
1 cap PO BID Qty: 60 0RF
Xarelto 15 mg Tablet
15 mg PO QPM Qty: 30 0RF
Boiron Arnicare Gel
1 applic topical DAILYPRN PRN (Reason: mild pain) Qty: 1 0RF
Discharge Orders:
Discharge Patient (As Directed); Ordered 07/26/24
Ordered By: Storm Carias
Discharge Date and Time
Discharge Date/Time: 07/26/24 16:38
Print Language: GUAMANIAN
--- NOTE | 2024-07-26 16:17 | CM ---
MD entered order for discharge.
Pt changed to inpatient . IMM given reviewed signed on chart.
Spoke with pt in room he said he was ready for dc.
He said son in law Karson will drive him home.
Offered VN he declined need.
He will be staying with his dgt after dc.
PLAN Home declined Needs
--- NOTE | 2024-07-26 17:26 | W.PN.HOSP.TC ---
Today's Communication/Plan
-
patient f/u with freight forwarder outpatient
Assessment / Plan
Assessment / Plan
Planning to discharge patient today (07/26)
Ordered COVID test-- 07/24
Rate controlled atrial fibrillation:
- Cardiology consulted (07/26)- Cardioversion was done but unsuccessful as atrial fibrillation returned, advised pt to follow up with his freight forwarder outpatient
- Theater Education Teacher is Dr. Reggie Parker at [place].
- Patients telemetry shows no overnight events and pulse is 99 today (07/26)
- [id number] score is 6 for age, HTN, CHF, DM, vascular disease
- continue Sotalol 80 am and 40 pm, propranolol 40 bid, and Xarelto
Acute Heart Failure with preserved ejection fraction:
- There is improvement in his bilateral lower extremity edema following diuretic use
- No shortness of breathe, jugular venous distention, dyspnea, fatigue, chest pain
- BNP elevated at 7900 on admission
- Echocardiogram on 07/24 shows LVEF of 70-75%
- Cardiology ordered Furosemide 20 mg IV BID, monitor weight
- Continue to f/u cardiology
Essential Hypertension:
- Continue Amlodipine 2.5 mg
-169/111 (07/24)
-continue lisinopril 40 mg
Anticipated Discharge: Today
Subjective/Interval History
-
Date of Service: July 26, 2024
NPO overnight for cardioversion. No acute medical complaints.
Objective Data
-
Labs:
Laboratory Results
07/26/24
06:29
WBC 12.5 H
Hgb 16.9
Hct 48.2
Plt Count 140 D
Sodium 142
Potassium 3.7
Chloride 97 L
Carbon Dioxide 32 H
BUN 41 H
Creatinine 1.4 H
Glucose 109 H
Calcium 9.5
Total Bilirubin 1.2
AST 41
ALT 37
Alkaline Phosphatase 76
Vital Signs:
Vital Signs
Temp Pulse Resp BP Pulse Ox
98.1 F 99 22 169/111 98
07/26/24 15:04 07/26/24 15:04 07/26/24 15:04 07/26/24 15:04 07/26/24 15:04
I&O
07/25/24 07/26/24 07/27/24
06:59 06:59 06:59
Intake Total 0 / 0 600 / 600
Output Total 1350 / 1350 1590 / 1590
Balance -1350 / -1350 -990 / -990
Review of Systems
-
History Source: Patient
All other systems: Reviewed and negative
Physical Exam
-
General: Well Developed, Well Nourished and No Apparent Distress
HEENT: Normocephalic and Atraumatic
Respiratory: Clear to Auscultation
Cardiac: Irregular Rhythm
GI: Soft, Nontender and Nondistended
Neuro: Awake, Alert, Oriented and AO x 3
Psych: Calm
Data Reviewed
-
Medical Tests (Nuc Med, Echo etc): Image personally visualized and interpreted
Labs: Labs Reviewed by me and Discussed with Physician
--- NOTE | 2024-07-28 09:39 | W.HF.CON ---
Heart Failure
- LV Function
Left ventricular function study result: LV Ejection fraction >40%
Ejection Fraction Percentage: 70-75
- ARNI
Patient already on ARNI: No
Heart Failure ARNI Not Indicated: LV Ejection Fraction >/= 40%
- ACEI/ARB
Patient already on ACEI/ARB: Yes
- Beta Nghia
Patient already on Evidence Based Beta Nghia: No
Heart Failure Evidence Based Beta Nghia Not Indicated: LV Ejection Fraction > 40%
- Mineralocorticord Receptor Antagonist
Patient already on MRA: No
Heart Failure MRA Not Indicated: LV Ejection Fraction > 40%
- SGLT-2 Inhibitor
Patient already on SGLT-2 Inhibitor: No
Heart Failure SGLT-2 Inhibitor Not Indicated: LV Ejection Fraction >40%
- Afib Anticoagulation
Patient already on Anticoagulation for Afib: Yes
- NYHA CHF Classification
NYHA CHF Classification Level: Class III - Symptoms w/ min exertion, interferes w/ nml daily activity
- ACC/AHA Stage
ACC/AHA Stage: Stage C: Symptomatic Heart Failure
== END 2024-07-26 16:38 | disposition home or self-care (01) | DRG 291 ==
LOC: 4 EAST ACU 08:16
PROVIDERS: ADMITTING PHYSICIAN Internal Medicine; ATTENDING PHYSICIAN Internal Medicine; CONSULT PHYSICIAN Internal Medicine; EMERGENCY PHYSICIAN Emergency Medicine; FAMILY PHYSICIAN Internal Medicine
PROC: 5A2204Z Restoration of Cardiac Rhythm, Single (ICD-10-PCS; 2024-07-26)
DX: I11.0 Hypertensive heart disease with heart failure (principal); I50.31 Acute diastolic (congestive) heart failure; I48.21 Permanent atrial fibrillation; G25.0 Essential tremor; I25.10 Atherosclerotic heart disease of native coronary artery without angina pectoris; Z79.01 Long term (current) use of anticoagulants
CPT/HCPCS: 71046; 80048; 80053; 80061; 83036; 83735; 83880; 84443; 84484; 85025; 85027; 87811; 92960; 93005; 93306; 99285